=== PATIENT | female | born 1945 | race Caucasian/White ===

== ENCOUNTER → 2025-05-19 | Outpatient (CLI) | payer MEDICARE ==
[~2025-05-19] MED LIST: /FEXO18TA OR; ASPI81TA26 PO; ASPI81TA90 PO; ATOR1TAB19 PO; B-122500 PO; CENT1TAB PO; CENTTAB PO; CITRTAB18 PO; COLA50CA3 PO; DOCOSAHEXAENOIC ACID OR; FEXO-63 PO; FOLI400T5 PO; FOLIC ACID OR; LEVOPOW21 OR; LOSA50TA28 PO; METF-839 PO; MOME17SP; MOME50SP; OMEP40CA4 PO; PERC2.5T PO; PERC7.5T12 PO; SIMV40TA2 PO; SYNT100T PO; TYLE325T5 PO; VENTAER INH; VITA250L PO
[2025-05-19 15:34] LABS: BASO # 0.1 10^3/uL (0.0-0.2); BASO % 0.5 % (0.0-1.0); EOS # 0.3 10^3/uL (0.0-0.5); EOS % 3.1 % (0.0-3.0); HEMATOCRIT 34.1 % (36.0-47.0); HEMOGLOBIN 10.9 g/dl (12.0-15.5); LYMPH % 28.7 % (24.0-44.0); MEAN CORPUSCULAR HEMOGLOBIN 28.2 pg (27.0-33.0); MEAN CORPUSCULAR VOLUME 88.3 fl (80.0-96.0); MONO # 0.6 10^3/uL (0.0-0.8); NEUTROPHILS # 6.3 10^3/uL (1.5-8.5); NEUTROPHILS % 61.2 % (36.0-66.0); PLATELET COUNT, AUTOMATED 330 10^3/uL (150-450); RED BLOOD COUNT 3.86 10^6/uL (4.00-5.40); WHITE BLOOD COUNT 10.3 10^3/uL (4.0-10.0)
[2025-05-19 16:10] LABS: BILIRUBIN,DIRECT 0.2 MG/DL (<0.4); CHOLESTEROL RISK RATIO 2.75 (<5); HDL CHOLESTEROL 49.8 MG/DL (>40); LDL CHOLESTEROL 54.6 MG/DL (<100); NON-HDL-C 87.2 MG/DL
[2025-05-20 09:13] LABS: ALBUMIN 3.9 G/DL (3.2-5.2); BILIRUBIN,TOTAL 0.4 MG/DL (0.3-1.2); TOTAL PROTEIN 7.2 G/DL (5.7-8.2)
== END ==
LOC: M LAB 15:05
PROVIDERS: ATTEND Surgery
DX: K80.20 Calculus of gallbladder without cholecystitis without obstruction (principal); Z79.899 Other long term (current) drug therapy

== ENCOUNTER → 2025-06-06 | Outpatient (CLI) | payer MEDICARE, BC ==
[2025-06-06 14:08] LABS: PLATELET COUNT, AUTOMATED 330 10^3/uL (150-450)
[2025-06-06 14:19] LABS: ESTIMATED AVERAGE GLUCOSE 126.0 MG/DL (60-110)
[2025-06-06 14:35] LABS: ALT/SGPT 30.0 U/L (7.0-40); AST/SGOT 33.0 U/L (<34); CALCIUM LEVEL 9.7 MG/DL (8.3-10.6); CARBON DIOXIDE LEVEL 24.0 MMOL/L (20-31); CHLORIDE LEVEL 104.0 MMOL/L (98-107); CHOLESTEROL LEVEL 143.0 MG/DL (<200); CHOLESTEROL RISK RATIO 2.54 (<5); CREATININE FOR GFR 0.85 MG/DL (0.55-1.30); GLOMERULAR FILTRATION RATE 68.8 (>32); LDL CHOLESTEROL 59.4 MG/DL (<100); NON-HDL-C 86.8 MG/DL; POTASSIUM SERUM 4.4 MMOL/L (3.5-5.1); SODIUM LEVEL 140.0 MMOL/L (136-145); TRIGLYCERIDES LEVEL 137.0 MG/DL (<150)
[2025-06-06 14:36] LABS: FREE T4 1.19 NG/DL (0.89-1.76)
== END ==
LOC: M WUC 12:51
PROVIDERS: ATTEND Family Medicine
DX: I11.9 Hypertensive heart disease without heart failure (principal); K76.0 Fatty (change of) liver, not elsewhere classified; E03.9 Hypothyroidism, unspecified; R73.03 Prediabetes; E78.5 Hyperlipidemia, unspecified

== ENCOUNTER 2025-06-23 09:51 | Day surgery (SDC) | payer MEDICARE ==
[~2025-06-23] VITALS: Ht 157.5 cm; Wt 87.2 kg
[2025-06-23] MEDS ORDERED: ACETAMINOPHEN 1000MG/100ML IV BAG As Ordered ONE (10:05)
[2025-06-23] MEDS ORDERED: ROCURONIUM BROMIDE 50MG/5ML VIAL As Ordered ONE (10:06)
[2025-06-23] MEDS ORDERED: ONDANSETRON 4MG 2ML VIAL As Ordered ONE (10:06)
[2025-06-23] MEDS ORDERED: SUGAMMADEX SODIUM 500 MG/5 ML VIAL As Ordered ONE (10:06)
[2025-06-23] MEDS ORDERED: LIDOCAINE 2% 100 MG/5 ML SDV (FOR ANES.) As Ordered ONE (10:06)
[2025-06-23] MEDS ORDERED: dexAMETHasone 4 MG/ML 1 ML VIAL As Ordered ONE (10:07)
[2025-06-23] MEDS: CelecoXIB 400 MG CAP PO ONE (11:07)
[2025-06-23] MEDS: ceFAZolin SOD 2 GM IV ONCE IV ONE (15:18)
[2025-06-23] MEDS: INDOCYANINE GREEN 25 MG VIAL As Ordered ONE (15:20)
[2025-06-23] MEDS ORDERED: LABETALOL 100 MG/20 ML VIAL As Ordered ONE (16:46)
[2025-06-23] MEDS: LIDOCAINE 1% SDV 30 ML VIAL As Ordered ONE (17:00)
[2025-06-23 18:45] VITALS: BP 165/77; TEMP 96.8; O2SAT 99
[2025-06-24] MEDS ORDERED: INDOCYANINE GREEN 25 MG VIAL IV ONE (06:00)
== END 2025-06-23 19:28 | disposition home or self-care (01) ==
LOC: M SDC 09:51
PROVIDERS: ATTEND Surgery
DX: K80.10 Calculus of gallbladder with chronic cholecystitis without obstruction (principal); E11.9 Type 2 diabetes mellitus without complications; I10 Essential (primary) hypertension; E03.9 Hypothyroidism, unspecified; E78.00 Pure hypercholesterolemia, unspecified; Z79.82 Long term (current) use of aspirin; Z79.899 Other long term (current) drug therapy; Z79.890 Hormone replacement therapy; Z79.84 Long term (current) use of oral hypoglycemic drugs; Z85.118 Personal history of other malignant neoplasm of bronchus and lung; Z88.2 Allergy status to sulfonamides; Z90.710 Acquired absence of both cervix and uterus; G47.30 Sleep apnea, unspecified; Z90.89 Acquired absence of other organs; Z87.891 Personal history of nicotine dependence; Z90.2 Acquired absence of lung [part of]
CPT/HCPCS: 47563; 88304; J0131; J0665; J0690; J1100; J1920; J2405; J3010; Q9968